=== PATIENT | female | born 1990 | race American Indian/Alaskan Native ===

== ENCOUNTER 2019-12-19 11:39 | Emergency (ER) | payer MEDICAID ==
[2019-12-19 11:46] VITALS: BP 124/82
--- NOTE | 2019-12-19 12:19 | XRay Report ---
XR ankle 3+V RT INDICATION / CLINICAL INFORMATION: pain/swelling. COMPARISON: None available. FINDINGS: No acute fracture. Normal alignment. Joint spaces are preserved. No destructive osseous lesion or s uspicious periosteal reaction. Impression: 1.No acute osseous abnormality. Signer Name: Abdulkadir Harrison MD Signed: 12/19/2019 12:15 PM Workstation Name: [id number]
--- NOTE | 2019-12-19 13:11 | Emergency Department Report ---
ED Lower Extremity HPI - General Chief Complaint: Extremity Injury, Lower Stated Complaint: RT ANKLE INJURY Time Seen by Provider: 12/19/19 12:17 Source: patient Mode of arrival: Ambulatory Limitations: No Limitations - History of Present Illness Initial Comments: Patient is a 29-year-old female presents emergency room with complaints of right ankle pain that began 4 days ago. Patient states that she tripped over a vent in the floor and that she had a inversion injury of her ankle. She states since then she has had right ankle pain and swelling. She states that she has been ambulatory with some discomfort. She states that the pain increases when she first steps down. She denies ever injuring in the past. She denies any numbness or weakness. She denies any past medical history. She denies any medication allergies. - Related Data Previous Rx's Medication Instructions Recorded Last Taken Type Naproxen [EC-Naproxen] 500 mg PO BID PRN #14 tablet. 12/19/19 Unknown Rx Allergies Allergy/AdvReac Type Severity Reaction Status Date / Time kiwi Allergy Hives Verified 12/19/19 11:43 pineapple Allergy Hives Verified 12/19/19 11:43 strawberry Allergy Hives Verified 12/19/19 11:43 ED Review of Systems ROS: Stated complaint: RT ANKLE INJURY Other details as noted in HPI Comment: All other systems reviewed and negative ED Past Medical Hx - Past Medical History Previous Medical History?: No - Surgical History Past Surgical History?: No - Social History Smoking Status: Current Every Day Smoker Substance Use Type: Alcohol - Medications Home Medications: Home Medications Medication Instructions Recorded Confirmed Last Taken Type Naproxen [EC-Naproxen] 500 mg PO BID PRN #14 tablet. 12/19/19 Unknown Rx ED Physical Exam - General Limitations: No Limitations General appearance: alert, in no apparent distress - Head Head exam: Present: atraumatic, normocephalic - Eye Eye exam: Present: normal appearance - ENT ENT exam: Present: mucous membranes moist - Extremities Exam Extremities exam: Present: other (right lateral malleolus ttp, there is edema localized in the right lateral malleolus region, FROM of the right ankle, foot, and toes with discomfort upon external rotation, no obvious deformity, neurovascularly intact) - Neurological Exam Neurological exam: Present: alert, oriented X3 - Psychiatric Psychiatric exam: Present: normal affect, normal mood - Skin Skin exam: Present: warm, dry, intact ED Course Vital Signs 12/19/19 11:44 Temperature 98.2 F Pulse Rate 97 H Respiratory 16 Rate Blood Pressure 124/82 O2 Sat by Pulse 97 Oximetry ED Lower Extremity MDM - Radiology Data Radiology results: report reviewed cc: KIMBERLEY PATRICK MD Fluoro Time In Minutes: XR ankle 3+V RT INDICATION / CLINICAL INFORMATION: pain/swelling. COMPARISON: None available. FINDINGS: No acute fracture. Normal alignment. Joint spaces are preserved. No destructive osseous lesion or suspicious periosteal reaction. Impression: 1.No acute osseous abnormality. Signer Name: Abdulkadir Harrison MD Signed: 12/19/2019 12:15 PM Workstation Name: [id number] Transcribed By: CS Dictated By: Abdulkadir Harrison MD Electronically Authenticated By: Abdulkadir Harrison MD Signed Date/Time: 12/19/19 121 DD/ 13 TD/TT: - Medical Decision Making Patient is a 29-year-old female presents emergency room with complaints of right ankle pain that began 4 days ago. Patient states that she tripped over a vent in the floor and that she had a inversion injury of her ankle. She states since then she has had right ankle pain and swelling. She states that she has been ambulatory with some discomfort. She states that the pain increases when she first steps down. She denies ever injuring in the past. She denies any numbness or weakness. She denies any past medical history. She denies any medication allergies. vitals are normal. on exam: right lateral malleolus ttp, there is edema localized in the right lateral malleolus region, FROM of the right ankle, foot, and toes with discomfort upon external rotation, no obvious deformity, neurovascularly intact. XR right ankle: 1.No acute osseous abnormality. Symptoms likely related to ankle sprain. Patient placed in an ankle stirrup splint and crutches by nurse and remained neurovascularly intact. Patient given prescription for naproxen. Advised patient Please take medication as prescribed. Please follow-up with orthopedic doctor. Do not bear weight on the leg until you have followed up with orthopedic. Return to emergency room for any new or worsening symptoms. - Differential Diagnosis strain, sprain, fx, dislocation Critical care attestation.: If time is entered above; I have spent that time in minutes in the direct care of this critically ill patient, excluding procedure time. ED Disposition Clinical Impression: Right ankle sprain Qualifiers: Encounter type: initial encounter Involved ligament of ankle: unspecified ligament Qualified Code(s): S93.401A - Sprain of unspecified ligament of right ankle, initial encounter Disposition: TO HOME OR SELFCARE Is pt being admited?: No Does the pt Need Aspirin: No Condition: Stable Instructions: Ankle Sprain (ED), Crutch Instructions (ED), Ankle Stirrup Splint (ED) Additional Instructions: Please take medication as prescribed. Please follow-up with orthopedic doctor. Do not bear weight on the leg until you have followed up with orthopedic. Return to emergency room for any new or worsening symptoms. Prescriptions: Naproxen [EC-Naproxen] 500 mg PO BID PRN #14 tablet.dr CARR Reason: pain Referrals: PRIMARY CAREMD [Primary Care Provider] - 2-3 Days STEPHAN RANGEL MD [Staff Physician] - 2-3 Days [facility] [Provider Group] - 2-3 Days Forms: Work/School Release Form(ED) Time of Disposition: 13:09 Print Language: BELGIAN
== END 2019-12-19 14:01 | disposition home or self-care (01) ==
LOC: ED 11:39
DX: S93.401A Sprain of unspecified ligament of right ankle, initial encounter (principal); F17.200 Nicotine dependence, unspecified, uncomplicated; Z79.899 Other long term (current) drug therapy; Z91.018 Allergy to other foods; W18.40XA Slipping, tripping and stumbling without falling, unspecified, initial encounter; Y93.89 Activity, other specified; Y92.89 Other specified places as the place of occurrence of the external cause; Y99.8 Other external cause status

== ENCOUNTER 2020-01-27 16:44 | Emergency (ER) | payer MEDICAID ==
[2020-01-27 17:11] VITALS: BP 118/75
--- NOTE | 2020-01-27 17:26 | Emergency Department Report ---
Blank Doc - Documentation Documentation: 29-year-old female that presents with right foot pain after twisting it. This initial assessment/diagnostic orders/clinical plan/treatment(s) is/are subject to change based on patient's health status, clinical progression and re- assessment by fellow clinical providers in the ED. Further treatment and workup at subsequent clinical providers discretion. Patient/guardians urged not to elope from the ED as their condition may be serious if not clinically assessed and managed. Initial orders include: 1- Patient sent to [facility] for further evaluation and treatment 2- xrays
--- NOTE | 2020-01-27 17:53 | XRay Report ---
RIGHT FOOT 3 VIEW(S) INDICATION / CLINICAL INFORMATION: foot pain COMPARISON: None available. FINDINGS: BONES / JOINT(S): No acute fracture or subluxation. No significant arthritis. SOFT TISSUES: No significant abnormality. ADDITIONAL FINDINGS: None. IMPRESSION: 1. No acute osseous findings in the right foot. Signer Name: Reed Washburn MD Signed: 01/27/2020 5:49 PM Workstation Name: [id number]
--- NOTE | 2020-01-27 19:58 | Emergency Department Report ---
ED Lower Extremity HPI - General Chief Complaint: Extremity Injury, Lower Stated Complaint: RT FOOT INJURY Time Seen by Provider: 01/27/20 17:25 Source: patient Mode of arrival: Ambulatory Limitations: Physical Limitation - History of Present Illness Initial Comments: 29-year-old female presents to ED with right foot pain. She reports twisting her foot on yesterday. Patient able to walk with a limp. She has not taken any [id number] medication for pain. MD Complaint: foot injury -: days(s) (1) Injury: Foot: Right Type of Injury: eversion Severity: mild Improves With: immobilization Worsens With: weight bearing Context: other Associated Symptoms: able to partially bear weight - Related Data Previous Rx's Medication Instructions Recorded Last Taken Type Naproxen [EC-Naproxen] 500 mg PO BID PRN #14 tablet. 12/19/19 Unknown Rx Naproxen [Naprosyn] 500 mg PO BID #20 tablet 01/27/20 Unknown Rx Allergies Allergy/AdvReac Type Severity Reaction Status Date / Time kiwi Allergy Hives Verified 12/19/19 11:43 pineapple Allergy Hives Verified 12/19/19 11:43 strawberry Allergy Hives Verified 12/19/19 11:43 ED Review of Systems ROS: Stated complaint: RT FOOT INJURY Other details as noted in HPI Comment: All other systems reviewed and negative Musculoskeletal: as per HPI Neurological: denies: numbness, paresthesias ED Past Medical Hx - Past Medical History Previous Medical History?: No - Surgical History Past Surgical History?: No - Social History Smoking Status: Never Smoker Substance Use Type: None - Medications Home Medications: Home Medications Medication Instructions Recorded Confirmed Last Taken Type Naproxen [EC-Naproxen] 500 mg PO BID PRN #14 tablet. 12/19/19 Unknown Rx Naproxen [Naprosyn] 500 mg PO BID #20 tablet 01/27/20 Unknown Rx ED Physical Exam - General Limitations: Physical Limitation General appearance: alert, in no apparent distress - Head Head exam: Present: atraumatic, normocephalic - Eye Eye exam: Present: normal appearance, EOMI - ENT ENT exam: Present: mucous membranes moist - Neck Neck exam: Present: normal inspection - Respiratory Respiratory exam: Absent: respiratory distress - Cardiovascular Cardiovascular Exam: Present: regular rate, normal rhythm - GI/Abdominal GI/Abdominal exam: Absent: distended - Extremities Exam Extremities exam: Present: normal inspection, other (Slight swelling to right foot with tenderness to lateral aspect of right foot; DP pulse intact) - Neurological Exam Neurological exam: Present: alert, oriented X3. Absent: motor sensory deficit - Psychiatric Psychiatric exam: Present: normal affect, normal mood - Skin Skin exam: Present: warm, dry, intact, normal color ED Course Vital Signs 01/27/20 01/27/20 17:10 20:10 Temperature 97.6 F Pulse Rate 62 64 Respiratory 18 16 Rate Blood Pressure 118/75 [Right] O2 Sat by Pulse 100 99 Oximetry ED Lower Extremity MDM - Radiology Data Radiology results: report reviewed, image reviewed Critical care attestation.: If time is entered above; I have spent that time in minutes in the direct care of this critically ill patient, excluding procedure time. ED Disposition Clinical Impression: Right foot sprain Disposition: DC-01 TO HOME OR SELFCARE Is pt being admited?: No Condition: Stable Instructions: Foot Sprain, Elastic Bandage and RICE Therapy Prescriptions: Naproxen [Naprosyn] 500 mg PO BID #20 tablet Referrals: STEPHAN RANGEL MD [Staff Physician] - 3-5 Days Forms: Work/School Release Form Time of Disposition: 19:59
== END 2020-01-27 20:10 | disposition home or self-care (01) ==
LOC: ED 16:44
DX: S93.691A Other sprain of right foot, initial encounter (principal); X58.XXXA Exposure to other specified factors, initial encounter; Y93.89 Activity, other specified; Y92.89 Other specified places as the place of occurrence of the external cause; Y99.8 Other external cause status
CPT/HCPCS: 99283

== ENCOUNTER 2021-07-12 10:59 | Emergency (ER) | payer MEDICAID, OTHER ==
[2021-07-12 11:36] VITALS: BP 118/83
== END 2021-07-12 17:43 | disposition left against medical advice (07) ==
LOC: ED 10:59
DX: Z00.00 Encounter for general adult medical examination without abnormal findings (principal); Z53.21 Procedure and treatment not carried out due to patient leaving prior to being seen by health care provider; W53.11XA Bitten by rat, initial encounter; Y93.9 Activity, unspecified; Y92.89 Other specified places as the place of occurrence of the external cause; Y99.8 Other external cause status